=== PATIENT | male | born 1955 | race Caucasian/White ===

== ENCOUNTER → 2016-05-08 | Outpatient (CLI) | payer BC | END | disposition home or self-care (01) | LOC: LAB.O 14:21 | PROVIDERS: ATTEND Urology | DX: N40.3 Nodular prostate with lower urinary tract symptoms (principal) ==

== ENCOUNTER → 2016-10-14 | Outpatient (CLI) | payer BC | END | disposition home or self-care (01) | LOC: LAB.O 08:27 | PROVIDERS: ATTEND Nuclear Medicine Nuclear Cardiology | DX: E78.5 Hyperlipidemia, unspecified (principal) ==

== ENCOUNTER → 2016-11-01 | Outpatient (CLI) | payer BC | LOC: GMAB 10:32 | PROVIDERS: ATTEND Family Medicine | DX: Z00.01 Encounter for general adult medical examination with abnormal findings (principal) ==

== ENCOUNTER → 2016-11-08 | Outpatient (CLI) | payer BC ==
--- NOTE | 2016-11-08 16:50 | CT ---
EXAM DESCRIPTION: Chest w/o Contrast CLINICAL HISTORY: COUGH COMPARISON: None. TECHNIQUE: Spiral-axial scans at 5.0 mm intervals through the lungs and thorax without IV contrast. Coronal and sagittal 2.0 Mm reconstructions. Total Exam DLP: 687.28 mGy-cm. This exam was performed according to our departmental dose-optimization program which includes automated exposure control, adjustment of the mA and/or kV according to patient size and/or use of iterative reconstruction technique; to reduce radiation dose to as low as reasonably achievable (ALARA). FINDINGS: Minimally prominent interstitial markings bilaterally. More interstitial markings in the midlung trevino and slightly dilated airspaces in the upper lung trevino. 2 mm pleural-based nodule abutting the right lower lobe. 6 mm nodule in the superior segment (series 2 images 35). No calcified nodules bilaterally. No infiltrates. Focal pleural thickening posterior left upper lobe. Left thyroid lobe unremarkable but large nodule approximately 2.4 x 2.3 cm in diameter in the right lobe. No significant enlarged nodules around the thyroid gland on the base of the neck. Small mediastinal and hilar nodes bilaterally. Atherosclerotic calcifications of aorta. Coronary artery calcifications and/or stents. Tracheal and proximal bronchial cartilage calcifications. Gallbladder is visualized. Normal size and density of the included adrenal glands. Diverticula on the included colon and atherosclerotic changes in the included abdominal aorta and major vessels originating from the aorta. Small hiatal hernia. IMPRESSION: 1. 6 mm nodule in the superior segment of the right lower lobe. Consider follow-up CT scan in 6-12 month interval, based upon 2017 Fleischner Society recommendations for imaging follow-up of single solid lung nodules. Please see below.* 2. 2.3 mm cyst or nodule in the right lobe of the thyroid gland. Consider follow-up thyroid ultrasound evaluation, according to [facility] Best Practice guidelines for follow-up of incidental thyroid nodules (ITN). Please see below. 3. Diverticulosis of the transverse colon. Coronary artery atherosclerotic calcifications in or stents. *2017 Fleischner Society Recommendations for Single Solid Lung Nodule Follow-Up based on size (average of long- and short-axis diameters) <6 mm Low-Risk Patient: No routine follow-up <6 mm High-Risk Patient: Optional CT at 12 months 6-8 mm Low-Risk Patient: CT at 6-[address] at 18-24 months 6-8 mm High-Risk Patient: CT at 6-[address] at 18-24 months >8 mm Low-Risk Patient: Consider CT, PET/CT or tissue sampling at 3 months >8 mm High-Risk Patient: Same as for low-risk patient. 1.Further evaluation by thyroid US recommended for: -Solitary ITN with high risk imaging features (locally invasive nodule or suspicious lymph nodes) -Solitary ITN of any size in pediatric pt's. <= 18 years of age -Solitary ITN >= 1 cm in axial plane in pt's. between 18 and 35 years of age -Solitary ITN >= 1.5 cm in axial plane in pt's >= 35 years of age -Heterogeneous enlarged thyroid gland -ITN avid on FDG-PET or other nuclear medicine (MIBI and octreotide) scans. FNA biopsy is also recommended for PET avid nodules. 2.No f/u imaging is recommended for ITN not meeting the above criteria. 3.For multiple thyroid nodules, the above recommendations for solitary ITN are to be applied to the largest nodule. 4.No US or f/u recommended for ITN without high risk features in pt's. with limited life expectancy or significant co-morbidities, unless clinically warranted. 5.These recommendations do not apply to pt's. W/ increased risk for thyroid cancer or pt's. with symptomatic thyroid disease. Recommendations for f/u of Incidental Thyroid Nodules (ITN) found on CT, MR, NM and Extrathyroidal US are based upon the ACR white paper and Sheth 3-tiered system for managing ITN: J Am Santana [facility]. 2015 Apr;12(2): 143-50 Electronically signed by: Freddy Mitchell MD 11/08/2016 4:49 PM CDT Workstation: [id number]
== END ==
LOC: CT 07:45
PROVIDERS: ATTEND Family Medicine
DX: R05 Cough (principal); R91.1 Solitary pulmonary nodule; F17.210 Nicotine dependence, cigarettes, uncomplicated

== ENCOUNTER → 2016-11-27 | Outpatient (CLI) | payer BC | LOC: LAB.O 09:19 | PROVIDERS: ATTEND Physician Assistant | DX: I10 Essential (primary) hypertension (principal); E78.5 Hyperlipidemia, unspecified; I25.10 Atherosclerotic heart disease of native coronary artery without angina pectoris ==

== ENCOUNTER → 2016-12-12 | Outpatient (CLI) | payer BC ==
--- NOTE | 2016-12-12 15:10 | US ---
EXAM DESCRIPTION: Thyroid ultrasound CLINICAL HISTORY: NODULE COMPARISON: CT scan of the chest without contrast TECHNIQUE: Transcutaneous scannin-dimensional and Doppler modes. FINDINGS: Right lobe dimensions 5.1 x 2.0 x 1.8 cm. Heterogeneous echoes. Heterogeneous mostly hypoechoic mostly solid nodule in the lower pole. Dimensions are 2.8 cm transverse and 2.7 x 2.1 cm in the sagittal plane. The nodule is not vascular. In the mid lobe is a second hypoechoic nodule measuring 1.1 cm transverse and 1.2 x 0.8 cm in the sagittal plane. Nonvascular. Decreased vascularity in the remainder of the lobe. No microcalcifications. Contour right lobe smooth. Juxta-thyroid masses/fluid: none. Left lobe dimensions 5.0 x 2.4 x 1.7 cm. Heterogeneous echoes. Well-defined echogenic nodule in the upper pole measuring 6.2 x 5.9 mm. Not vascular. Hypoechoic nodule in the lower pole posterior measuring 1.1 cm transverse and 1.4 x 0.7 cm in the sagittal plane. Nonvascular. Decreased vascularity in the remainder of the lobe. No microcalcifications. Contour left lobe smooth. Juxta-thyroid masses/fluid: none. Isthmus thickness 2.2 mm. Heterogeneous echoes. No cystic, no solid, and no complex lesions. Decreased vascularity. Contour smooth. IMPRESSION: 1. Enlarged nodule in the lower pole of the right lobe measuring 2.8 cm transverse. This nodule meets the imaging criteria for Fine needle aspiration sampling according to [facility] best practice guidelines, adopted from ACR white paper and Sheth 3-tiered guidelines on incidental thyroid nodules. Please see below.*Other nodules bilaterally do not meet the criteria. These recommendations do not apply to patients with increased risk for thyroid cancer or patients with symptomatic thyroid disease. 2. No discrete solid masses, cystic masses, or edema in the surrounding soft tissues. *Further evaluation by thyroid US recommended for: -Solitary incidental thyroid nodule (ITN) with high risk imaging features (locally invasive nodule or suspicious lymph nodes) -Solitary ITN of any size in pediatric patients <= 18 years of age -Solitary ITN >= 1 cm in axial plane in patients between 18 and 35 years of age -Solitary ITN >= 1.5 cm in axial plane in patients >= 35 years of age -Heterogeneous enlarged thyroid gland -ITN avid on FDG-PET or other nuclear medicine (MIBI and octreotide) scans. FNA biopsy is also recommended for PET avid nodules. 2.No f/u imaging is recommended for ITN's not meeting the above criteria. 3.For multiple thyroid nodules, the above recommendations for solitary ITN are to be applied to the largest nodule. 4.No US or f/u recommended for ITN's without high risk features in patients with limited life expectancy or significant co-morbidities, unless clinically warranted. 5.These recommendations do not apply to patients w/ increased risk for thyroid cancer or patients with symptomatic thyroid disease. Recommendations for f/u of Incidental Thyroid Nodules (ITN) found on CT, MR, NM and Extrathyroidal US are based upon the ACR white paper and Sheth 3-tiered system for managing ITN's: J Am [facility] 2015 Apr;12(2): 143-50 Electronically signed by: Freddy Mitchell MD 12/12/2016 3:09 PM CDT
== END | disposition home or self-care (01) ==
LOC: US 11:16
PROVIDERS: ATTEND Family Medicine
DX: E04.1 Nontoxic single thyroid nodule (principal)

== ENCOUNTER → 2017-09-22 | Outpatient (CLI) | payer BC ==
--- NOTE | 2017-09-22 15:41 | CT ---
EXAM DESCRIPTION: Chest w/o Contrast : Computed Tomography. CLINICAL HISTORY: SOLITARY PULMONARY NODULE COMPARISON: CT scan of the chest without contrast 11/08/2016. TECHNIQUE: Spiral-axial scans at 5.0 mm intervals through the lungs and thorax without IV contrast. 2.5 mm lung algorithm axial reconstructions. Coronal and sagittal 2.0 Mm reconstructions. Total Exam DLP: 1037.61 mGy-cm. This exam was performed according to our departmental dose-optimization program which includes automated exposure control, adjustment of the mA and/or kV according to patient size and/or use of iterative reconstruction technique; to reduce radiation dose to as low as reasonably achievable (ALARA). FINDINGS: Again noted is a round, 4 mm soft tissue nodule subpleural location, lateral right middle lobe, on axial series 4, image 78. Appeared larger on the prior study due to slice thickness. No calcifications. Previously seen pleural-based nodule posterior medial right lower lobe no longer present. Minimal pleural thickening left lower lobe. 4 mm soft tissue nodule subpleural left lower lobe laterally without calcification on image 76, is stable since the prior study. No abnormal nodules masses or infiltrates bilaterally. No pleural effusion or pneumothorax. Again noted is 2.4 cm nodule with decreased density in the inferior right thyroid lobe which was confirmed on follow-up thyroid ultrasound. Evaluation of the mediastinum hilum and As a limited due to lack of IV contrast. Coronary artery stents calcifications again noted along with atherosclerotic calcifications in the aorta. No large subcutaneous soft tissue masses in the mediastinum hilum or axilla. The subdiaphragmatic peritoneal space shows no free air or fluid. Gallbladder visualized with small radiodense object more superiorly located. Aortic atherosclerotic calcifications. Normal size and density of the spleen and adrenal glands. Diverticulosis again noted on the included colon and small sliding gastric hernia. Small low-density objects in the liver may represent cysts but are too small to be resolved by CT scan. Spondylosis multiple levels of the thoracic spine. IMPRESSION: 1. Stable left lower lobe nodule and right middle lobe nodule since the prior study. No further CT imaging follow-up is recommended according to [facility] Best Practice guidelines utilizing the 2017 Fleischner Society recommendations for multiple solid lung nodules. Please see below.* 2. Stable nodule in the right thyroid. It is not known if the patient underwent fine-needle aspiration sampling based upon recommendations from the prior ultrasound scan in November 2016. Consider follow-up thyroid ultrasound in November 2017, if the biopsy aspiration was not performed, or was benign. 3. Stable low-density nodules in the liver and small sliding gastric hiatal hernia. *2017 Fleischner Society Recommendations for Multiple Solid Lung Nodules Follow-Up base on size (average of long- and short-axis diameters). Use most suspicious nodule for followup. Nodule Size <6 mm Low-Risk Patient: No routine follow-up Nodule Size <6 mm High-Risk Patient: Optional CT at 12 months Nodule Size 6-8 mm Low-Risk Patient: CT at 3-[address] at 18-24 months Nodule Size 6-8 mm High-Risk Patient: CT at 3-6 months then at 18-24 months Nodule Size (mm) >8 Low-Risk Patient: CT at 3-6 months, then consider CT at 18-24 months Nodule Size (mm) >8 High-Risk Patient: CT at 3-6 months, then at 18-24 months Electronically signed by: Freddy Mitchell MD 09/22/2017 3:39 PM CDT
== END ==
LOC: CT 08:41
PROVIDERS: ATTEND Family Medicine
DX: R91.1 Solitary pulmonary nodule (principal)

== ENCOUNTER → 2018-10-09 | Outpatient (CLI) | payer MEDICARE, OTHER ==
--- NOTE | 2018-10-09 14:07 | US ---
EXAM DESCRIPTION: Thyroid CLINICAL HISTORY: 63 years Male, NONTOXIC SINGLE THYROID NODULE COMPARISON: December 12, 2016 FINDINGS: The right thyroid lobe measures 4.1 cm in length. There is a round hypoechoic solid nodule in its inferior pole with smooth margins and a few tiny internal echogenic foci (TIRADS category five). The nodule measures 2.6 cm diameter and is stable from November,. There is a second 1.2 cm round predominantly solid hypoechoic nodule in the mid right thyroid lobe with no internal calcification and smooth margins (TIRADS category four), also stable from November,. No new right thyroid nodule. The thyroid isthmus is not thickened, measuring 3 mm AP diameter. The left thyroid lobe measures 5.0 cm in length. It contains a round 1.4 cm hypoechoic solid nodule with smooth margins in its inferior pole. No internal echogenicity, and this nodule (TIRADS category four) is stable from the prior study. There is a smaller 7 mm round hyperechoic smoothly marginated solid nodule in the mid left thyroid lobe with no internal echogenicity (TIRADS category three), also stable. IMPRESSION: Bilateral thyroid nodules as detailed above, stable from November,. Annual follow-up to document five-year stability from December 12, 2016 is recommended. If not performed already, biopsy of the TIRADS category five nodule inferior pole right thyroid lobe should also be considered. Electronically signed by: Adrian Patel MD 10/09/2018 2:05 PM CDT
== END ==
LOC: GMAE 10:39
PROVIDERS: ATTEND Family Medicine
DX: E04.1 Nontoxic single thyroid nodule (principal); I10 Essential (primary) hypertension; E11.9 Type 2 diabetes mellitus without complications; M10.9 Gout, unspecified; Z12.5 Encounter for screening for malignant neoplasm of prostate
CPT/HCPCS: 76536; 84443; 84550; G0103

== ENCOUNTER → 2019-11-02 | Outpatient (CLI) | payer MEDICARE, OTHER | LOC: GMAE 10:46 | PROVIDERS: ATTEND Family Medicine | DX: Z12.5 Encounter for screening for malignant neoplasm of prostate (principal); M10.9 Gout, unspecified; I10 Essential (primary) hypertension; E11.9 Type 2 diabetes mellitus without complications | CPT/HCPCS: 84443; 84550; G0103 ==

== ENCOUNTER → 2019-12-01 | Outpatient (CLI) | payer MEDICARE, OTHER ==
--- NOTE | 2019-12-02 09:41 | CT ---
Procedure: CT LUNG SCREENING Exam Date: December 01, 2019. Ordering Provider: Tony Llanes Clinical Indication: PERSONAL HISTORY OF TOBACCO DEPENDENCE . Current cigarette smoker. 75 pack years. This patient meets eligibility criteria for low-dose CT lung cancer screening. Comparison: CT scan of the chest without contrast September 2017 Technique: Using a multislice scanner, sequential helical axial imaging was obtained in the thorax, 2.5 mm thickness, 2.5 mm separation, from the level of the thoracic inlet through the lung bases without IV contrast. A low dose protocol was utilized for BMI greater than 30: BMI: 34.6. CTDI: 117 mGy. 120. kVp. 75 mA. DLP 117 mGy-cm. 2D sagittal and coronal reconstructed images, 6.0 mm thickness, were obtained. This exam was performed according to our departmental dose optimization program which includes use of automated exposure control, adjustment of the mA and/or kV according to patient size and/or use of iterative reconstruction technique. Nodule measurements under 10 mm are given as mean value of 3 axes diameters. FINDINGS: Lungs and large airways: Perihilar peribronchial wall cuffing. Subpleural nodules less than 4 mm in diameter versus focal pleural thickening. 4 mm nodule abutting the posterior horizontal fissure in the superior segment right lower lobe on axial series 2, image 63. No interval change. 3.5 mm solid nodule left lower lobe on image 2/87 is stable. Soft tissue subpleural 4 mm nodule left lower lobe laterally without calcification on image 2/71. No abnormal nodules and no masses. No new or focal infiltrate. Pleura and space: Bilateral focal and diffuse pleural thickening with no acute process. Mediastinum and lola: evaluation limited by low dose technique and lack of IV contrast. Small lymph nodes no dominant soft tissue mass Heart and great vessels: Multiple coronary artery calcifications. Aortic and several brachiocephalic vessels with atherosclerotic calcifications. Chest wall, lower neck, axillae: Evaluation also limited by same factors as described above. Normal size axillary lymph nodes. Atrophic left latissimus dorsi with mostly fatty infiltration. Stable low-density nodule right lobe and isthmus of the thyroid gland. Approximately 2.5 cm greatest diameter. Upper abdomen: Evaluation limited by low-dose technique. No free air or free fluid in the peritoneal space. Normal density and size of the adrenal glands spleen and partial visualization of abdominal organs. Gallbladder is visualized. Aortic atherosclerotic calcifications. Osseous structures: Evaluation limited by low dose MIP technique. Spondylosis thoracic spine. Minimal arthrosis in the [id number] components. IMPRESSION: 1.. Stable groundglass and solid nodules bilaterally compared to nonscreen standard dose CT scan. Non-Critical size. No new nodules and no masses. No focal infiltrates. [facility] Best Practice Recommendations: please see below for Lung RADS category and FOLLOW-UP.* *Lung RADS category CATEGORY 2- Nodules with a very low likelihood (less than 1%) of becoming a clinically active cancer due to size or lack of growth. Nodules: Perifissural nodule(s) < 10 mm. (526mm3). Solid or part solid nodule(s) less than 6mm (113.1 mm3), new solid nodule less than 4mm (33.5 mm3). Ground glass nodule(s) less than 30mm (45369.2 mm3) or unchanged or slow growing ground glass nodule 30mm or greater. Cat 3 or 4 nodule unchanged for 3 or more months. FOLLOW-UP: Continue annual screening with a Low Dose Chest CT in 12 months for re-evaluation. Electronically signed by: Freddy Mitchell MD 12/02/2019 9:40 AM CDT
== END ==
LOC: CT 10:11
PROVIDERS: ATTEND Family Medicine
DX: Z87.891 Personal history of nicotine dependence (principal); Z12.2 Encounter for screening for malignant neoplasm of respiratory organs; R91.8 Other nonspecific abnormal finding of lung field